=== PATIENT | female | born 1970 | race Two or more races ===

== ENCOUNTER 2022-02-13 08:12 | Day surgery (SDC) | payer OTHER ==
[2022-02-13] MEDS ORDERED: IBU600 MG PO (11:19)
== END 2022-02-13 14:55 | disposition home or self-care (01) ==
LOC: CIR.AMB 08:12
PROVIDERS: ATTEND Obstetrics & Gynecology Gynecology
DX: N84.0 Polyp of corpus uteri (principal); Z20.822 Contact with and (suspected) exposure to COVID-19; Z86.16 Personal history of COVID-19; E78.5 Hyperlipidemia, unspecified; G43.909 Migraine, unspecified, not intractable, without status migrainosus